=== PATIENT | male | born 1950 | race Caucasian/White ===

== ENCOUNTER → 2020-03-09 09:01 | Outpatient (BNVA) | payer MEDICARE, SELFPAY | PROVIDERS: Family Provider Internal Medicine; PCP Internal Medicine; Visit Provider Internal Medicine | DX: E78.00 Pure hypercholesterolemia, unspecified (principal); N52.39 Other and unspecified postprocedural erectile dysfunction; Z00.00 Encounter for general adult medical examination without abnormal findings | CPT/HCPCS: 80053; 80061; G0103 ==

== ENCOUNTER → 2021-03-06 08:31 | Outpatient (BNVA) | payer MEDICARE, SELFPAY | PROVIDERS: Family Provider Internal Medicine; PCP Internal Medicine; Visit Provider Internal Medicine | DX: E78.00 Pure hypercholesterolemia, unspecified (principal); N52.31 Erectile dysfunction following radical prostatectomy; Z00.00 Encounter for general adult medical examination without abnormal findings; E78.5 Hyperlipidemia, unspecified | CPT/HCPCS: 80053; 80061; 84153 ==

== ENCOUNTER 2022-12-07 23:25 | Emergency (ER) | payer MEDICARE, SELFPAY ==
[2022-12-07 23:34] VITALS: BP 161/88; PULSE 71; RESP 20; TEMP 36.3; O2SAT 96; BMI 36.2
[2022-12-08 00:16] LABS: INR 1.01 (0.8-1.2)
[2022-12-08 00:17] LABS: Partial Thromboplastin Time 31.8 SECONDS (23.9-36.7)
[2022-12-08 00:18] LABS: Basophils # 0.1 10^3/uL (0.0-0.1); Basophils % 0.6 %; Eosinophils # 0.2 10^3/uL (0.0-0.8); Eosinophils % 2.3 %; Hematocrit 44.6 % (37-53); Lymphocytes # 2.4 10^3/uL (0.8-4.8); Lymphocytes % 26.8 %; Mean Corpuscular HGB Conc 34.3 g/dL (30-55); Mean Corpuscular Hemoglobin 31.8 pg (27-33); Mean Corpuscular Volume 92.7 fl (82-101); Mean Platelet Volume 10.5 fL (7.4-10.4); Monocytes # 0.7 10^3/uL (0.2-0.9); Monocytes % 7.8 %; Neutrophils # 5.57 10^3/uL (1.8-7.7); Neutrophils % 62.1 %; Nucleated Red Blood Cells % 0 %; Platelet Count 196 10^3/cmm (157-399); Red Blood Count 4.81 10^6/uL (3.85-5.65); Red Cell Distribution Width 11.5 % (12.1-15.1); White Blood Count 8.98 10^3/uL (3.29-11.43)
[2022-12-08] MEDS: silver nitrate applicator 3 EACH TOPICAL (00:21)
--- NOTE | 2022-12-08 00:22 | PC.NURSE ---
Suction with tubing and yanker set up and used for nasal irrigation by Dr Tubbs.
[2022-12-08 00:23] VITALS: BP 159/92; PULSE 74; RESP 18; O2SAT 96
[2022-12-08 00:24] LABS: Alanine Aminotransferase 23 U/L (0-41); Albumin Level 4.1 g/dL (3.5-5.2); Alkaline Phosphatase 76 U/L (40-130); Aspartate Amino Transferase 14 U/L (0-40); Blood Urea Nitrogen 14 mg/dL (8-23); Calcium 8.9 mg/dL (8.5-10.5); Carbon Dioxide 22 mmol/L (22-29); Chloride 106 mmol/L (98-107); Glucose 116 mg/dL (65-115); Osmolality Calculated 291 mOsm/kg (285-295); Sodium 140 mmol/L (136-145); Total Bilirubin 0.6 mg/dL (0.15-1.2); Total Protein 7.1 g/dL (6.6-8.7)
[2022-12-08] MEDS: oxymetazoline 0.05% Nasal Spray 15 mL 2 SPRAY NOSTRIL-L (00:32)
[2022-12-08 02:00] VITALS: BP 171/88; PULSE 88; RESP 18
--- NOTE | 2022-12-08 17:16 | W.ED.EPISTAX ---
HPI - Epistaxis General: Chief complaint: Epistaxis Stated complaint: NOSE BLEED Time Seen by Provider: 12/07/22 23:34 History of Present Illness: 71 year old male gentleman with a history of a Nosebleed this evening. He tried pressure at home without improvement. Ambulance was called. Nose clamp was placed on his nose, and bleeding has essentially stopped at this point. He has not anticoagulated, but does take aspirin. No history of trauma. He does not usually get nosebleeds. Associated symptoms: Deny fever(s) or vomiting Review of Systems Const: Denies: fever(s) Eyes: Denies: change in vision ENMT: Denies: throat pain Card: Denies: chest pain Resp: Denies: dyspnea GI: Denies: vomiting PFSH ED PFSH: Medical History Erectile dysfunction following radical prostatectomy Pure hypercholesterolemia, unspecified Family History Mother Cancer Sister Cancer Father Heart disease Social History Smoking and tobacco status: former smoker Alcohol intake: never Substance/Drug Use: never Adopted: No Marital status: Number of children: 2 service: No Current gender identity: Male Physical Exam Const: COMMON NORMALS: no acute distress GENERAL APPEARANCE: cooperative; not ill appearing and not frail appearing HENMT: COMMON NORMALS: normocephalic, atraumatic and Normal external nose present HEAD & SCALP: normocephalic and atraumatic FACE & SINUS: normal facial exam and face symmetric NOSE: Normal external nose present and Epistaxis present on the left (no bleeding currently) anterior source, dried blood present and active bleeding Eye: COMMON NORMALS: Equal, round and reactive pupils present and EOMs intact bilaterally PUPIL: Yes Equal, round and reactive pupils present Neck/C-Spine: GENERAL: Yes trachea midline Chest: CHEST: Yes Symmetrical chest wall rise Resp: COMMON NORMALS: normal respiratory effort, No retractions, No use of accessory muscles and clear to auscultation bilaterally AUSCULTATION: clear to auscultation bilaterally Cardio: COMMON NORMALS: regular rate and regular rhythm RATE: regular rate RHYTHM: regular rhythm GI: COMMON NORMALS: Normal to inspection, nondistended, normoactive bowel sounds present Extremity: COMMON NORMALS: no pedal edema Neuro: TOM COMA SCALE: document GCS findings [place] coma scale eye opening: Spontaneous [place] coma scale verbal response: Orientated Tom coma scale motor response: Obey commands [place] coma scale total score: 15 SENSORY EXAM: Yes extremities (intact) Psych: COMMON NORMALS: speech normal SPEECH: Yes normal speech Skin: COMMON NORMALS: no rashes or lesions noted GENERAL SKIN EXAM: no rashes or lesions noted Procedures Epistaxis Control Time Out Performed: No Nostril: left Nose Prepped With: oxymetazoline Direct Inspection: yes Clots Removed by: suction Cautery Used: silver nitrate Patient Tolerated Procedure: well and no complications Course Vital Signs: Vital signs: Vital Signs Temperature 97.4 F L 12/07/22 23:34 Pulse Rate 88 12/08/22 02:00 Respiratory Rate 18 12/08/22 02:00 Blood Pressure 171/88 12/08/22 02:00 Pulse Oximetry 96 12/08/22 00:23 Oxygen Delivery Me thod Room Air 12/08/22 00:23 MDM - Epistaxis Medical Decision Making Bleeding had stopped prior to examination. On exam, small ulceration found, nose was irrigated, and ulceration in the posterior nasal cavity was cauterized with silver nitrate. He will moisturize with Vaseline. He will use Afrin twice daily for the next three days. Patient follow up with ENT surgery. Lab Data 12/07/22 23:42 12/07/22 23:42 Laboratory Results WBC 8.98 10^3/uL (3.29-11.43) 12/07/22 23:42 RBC 4.81 10^6/uL (3.85-5.65) 12/07/22 23:42 Hgb 15.30 g/dL (11.27-16.99) 12/07/22 23:42 Hct 44.6 % (37-53) 12/07/22 23:42 MCV 92.7 fl (82-101) 12/07/22 23:42 MCH 31.8 pg (27-33) 12/07/22 23:42 MCHC 34.3 g/dL (30-55) 12/07/22 23:42 RDW 11.5 % (12.1-15.1) L 12/07/22 23:42 Plt Count 196 10^3/cmm (157-399) 12/07/22 23:42 MPV 10.5 fL (7.4-10.4) H 12/07/22 23:42 Neut % (Auto) 62.1 % 12/07/22 23:42 Lymph % (Auto) 26.8 % 12/07/22 23:42 [place] % (Auto) 7.8 % 12/07/22 23:42 Eos % (Auto) 2.3 % 12/07/22 23:42 Baso % (Auto) 0.6 % 12/07/22 23:42 Neut # (Auto) 5.57 10^3/uL (1.8-7.7) 12/07/22 23:42 Lymph # (Auto) 2.4 10^3/uL (0.8-4.8) 12/07/22 23:42 [place]er # (Auto) 0.7 10^3/uL (0.2-0.9) 12/07/22 23:42 Eos # (Auto) 0.2 10^3/uL (0.0-0.8) 12/07/22 23:42 Baso # (Auto) 0.1 10^3/uL (0.0-0.1) 12/07/22 23:42 Nucleated RBC % (auto) 0 % 12/07/22 23:42 Nucleated RBCs # 0.0 /100WBC 12/07/22 23:42 PT 13.60 SECONDS (12.1-14.9) 12/07/22 23:42 INR 1.01 (0.8-1.2) 12/07/22 23:42 APTT 31.8 SECONDS (23.9-36.7) 12/07/22 23:42 Sodium 140 mmol/L (136-145) 12/07/22 23:42 Potassium 4.0 mmol/L (3.5-5.1) 12/07/22 23:42 Chloride 106 mmol/L (98-107) 12/07/22 23:42 Carbon Dioxide 22 mmol/L (22-29) 12/07/22 23:42 Anion Gap 16.0 (5-19) 12/07/22 23:42 BUN 14 mg/dL (8-23) 12/07/22 23:42 Creatinine 0.7 mg/dL (0.7-1.2) 12/07/22 23:42 GFR Calculation Not Reportable 12/07/22 23:42 Glucose 116 mg/dL (65-115) H 12/07/22 23:42 Calculated Osmolality 291 mOsm/kg (285-295) 12/07/22 23:42 Calcium 8.9 mg/dL (8.5-10.5) 12/07/22 23:42 Total Bilirubin 0.6 mg/dL (0.15-1.2) 12/07/22 23:42 AST 14 U/L (0-40) 12/07/22 23:42 ALT 23 U/L (0-41) 12/07/22 23:42 Alkaline Phosphatase 76 U/L (40-130) 12/07/22 23:42 Total Protein 7.1 g/dL (6.6-8.7) 12/07/22 23:42 Albumin 4.1 g/dL (3.5-5.2) 12/07/22 23:42 Globulin 3.0 g/dL (1.3-4.6) 12/07/22 23:42 Blood Type A Positive 12/08/22 00:05 Rho(D) Type Positive 12/08/22 00:05 Antibody Screen Negative 12/08/22 00:05 Discharge Plan Discharge Patient Disposition: Home Clinical Impression: Epistaxis Condition: Stable Prescriptions: No Action hydrocortisone-acetic acid 1-2 % drops 4 drp otic (ear) BID Qty: 10 0RF meloxicam 15 mg tablet 15 mg PO DAILY 90 Days Qty: 90 3RF atorvastatin 40 mg tablet 40 mg PO DAILY Qty: 90 3RF Discharge Orders: Discharge ED (Routine); Ordered 12/08/22 Ordered By: Lexx Tubbs Referrals: Adeel Joya MD [Primary Care Provider] - Lito Mcneal MD [Physician] - 1-3 days Patient Instructions: Nosebleed (ED) Activity Restrictions/Additional Instructions: Use the dispensed nasal spray you were given twice daily for the next 3 days then stop. Moisturize your nasal passages with Vaseline at least twice daily. Return for any repeated episodes of nosebleeding not controllable at home. Return for any other concerning symptoms. No straining or heavy lifting for the next 2 to 3 days. You may follow-up with ENT surgery for repeat exam. The number is listed above. Coding Level of Care Code ED Tactical Air Control Party for Christopher Lebron
== END 2022-12-08 02:04 | disposition home or self-care (01) ==
PROVIDERS: Emergency Provider Emergency Medicine; Family Provider Internal Medicine; PCP Internal Medicine
DX: R04.0 Epistaxis (principal); Z79.82 Long term (current) use of aspirin
CPT/HCPCS: 30905; 36415; 80053; 85025; 85610; 85730; 86850; 86900; 99283

== ENCOUNTER → 2024-12-09 13:09 | Outpatient (BNVA) | payer MEDICARE, SELFPAY | PROVIDERS: Family Provider Internal Medicine; PCP Internal Medicine; Visit Provider Dermatology | DX: L21.8 Other seborrheic dermatitis (principal); L72.0 Epidermal cyst; L82.1 Other seborrheic keratosis; L57.0 Actinic keratosis; D48.5 Neoplasm of uncertain behavior of skin | CPT/HCPCS: 11102; 17004; 99204 ==

== ENCOUNTER → 2024-12-23 13:35 | Outpatient (BNVA) | payer MEDICARE, SELFPAY | PROVIDERS: Family Provider Internal Medicine; PCP Internal Medicine; Visit Provider Dermatology | DX: C44.42 Squamous cell carcinoma of skin of scalp and neck (principal); D04.61 Carcinoma in situ of skin of right upper limb, including shoulder | CPT/HCPCS: 11623; 12042; 17262 ==